=== PATIENT | male | born 1990 | race Caucasian/White ===

== ENCOUNTER 2024-10-28 19:25 | Emergency (ER) | payer SELFPAY ==
[2024-10-28 19:26] VITALS: BP 122/95; PULSE 89; RESP 18; TEMP 36.6; O2SAT 97; BMI 20.8
--- NOTE | 2024-10-28 19:40 | EX.ED.DYSGE1 ---
HPI History of Present Illness Chief Complaint: Flank Pain Informant: patient Narrative Narrative: 34-year-old male presenting to the emergency room with right flank pain vomiting diarrhea and inability to take a breath. Patient states that he came home from work vomiting and diarrhea. Lay down to rest got up had pain in the right flank extending onto the whole right side and notes an inability to take a deep breath because of pain. No fever. No urinary symptoms. Patient felt fine when they went to work. Denies any significant medical problems or prior surgeries. Currently takes no medications. 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 (bee venom Allergy Anaphylaxis Verified 10/28/24 19:26 (honey bee)) Family History no significant family his Surgical History no surgical history Social History Smoking Status: Current every day smoker tobacco type: cigarettes ROS ROS ED Constitutional Constitutional ED: Denies chills, fever(s) or weight loss Eyes Eyes: Denies change in vision or diplopia ENT ENT ED: Denies ear pain, rhinorrhea or sore throat Cardiovascular Cardiovascular: Denies chest pain, orthopnea, palpitations or racing heartbeat Respiratory/Chest Respiratory/Chest: Reports dyspnea; Denies cough or orthopnea Gastrointestinal Gastrointestinal: Reports abdominal pain, diarrhea, nausea and vomiting Genitourinary Genitourinary ED: Denies dysuria, hematuria or urinary frequency Musculoskeletal Musculoskeletal: Reports back pain; Denies arthralgias or myalgias Integumentary Denies abscess or rash Neurologic Neurologic: Denies headache(s) or weakness Psychiatric Psychiatric: Denies anxiety, depression, suicidal ideation or suicidal thoughts Endocrine Endocrinology: Denies polydipsia, polyphagia or polyuria Allergic/Immunologic Allergic/Immunologic ED: Denies mouth swelling, tongue swelling or urticaria EXAM Physical Exam Const Vital Signs: 10/28/24 19:26 10/28/24 21:25 Temperature 98 F Temperature Source Oral Pulse Rate 89 82 Respiratory Rate 18 16 Blood Pressure 122/95 H 99/61 Blood Pressure Mean 104 73 Pulse Ox 97 98 Oxygen Delivery Method Room Air Room Air Positive well nourished and well developed General Appearance ED: well developed and NAD HEENT Reports normocephalic, head/scalp atraumatic and moist mucous membranes Eyes PERRL and EOMs intact bilaterally Neck no lymphadenopathy, supple and no JVD Resp normal respiratory effort and clear to auscultation bilaterally Cardio regular rate, regular rhythm and no murmurs GI GI Narrative: Extraordinarily difficult to get an exam. Simply placing my hand on the patient's skin causes him to arrive in the bed and pain. Auscultation: normoactive bowel sounds Back/Spine no CVA tenderness Back/Spine Narrative: Reported pain in the right flank Extremity normal to inspection General Extremety ED: Negative for edema General Extremity: Negative for edema Neuro oriented x3 and CN's II-XII intact bilaterally Sensorium / Orientation: alert Motor Exam: strength 5/5 throughout Psych Mood & Affect: anxious; Negative for depressed or tearful Skin no rashes or lesions noted and no wounds MDM MDM MDM Narrative Medical decision making narrative: Differential diagnosis includes but not limited to pneumothorax biliary colic ureterolithiasis muscular spasm dehydration electrolyte abnormalities colitis IV established patient received IV fluids Toradol Zofran and Ativan. Patient's white count is elevated 15.7 with hemoglobin 17.9. BMP shows a BUN of 15 creatinine 1.22. Glucose of 148. Lipase 149 which is most likely due to his vomiting. Urinalysis demonstrates 1+ bacteria 0-5 white cells or 5 red cells positive nitrates but he does have some bilirubin and I wonder if this is a false positive as she does not have any urinary symptoms. His urine is rather concentrated showing it to be more of a very dark yellow. CT of abdomen pelvis was obtained which does not demonstrate any significant acute findings. Please see the radiologist read. They do note that the negrete of the appendix seemed thickened but there is no periappendiceal edema or inflammatory changes. The patient was reassessed and is doing much better. I wonder if the pain he was experiencing in his back that seem to wrap around to the abdomen was more of a muscular spasm brought on by some dehydration. I reexamined his abdomen he is pain-free particularly over the appendix. He moves easily. He is tolerating p.o. fluids. Can receive another liter of IV fluids and be discharged home on Zofran. We did talk specifically about his appendix and should he develop pain in the abdomen particular the right lower quadrant I would like him to return and he notes understanding of this. History & Record Review Discussion w/independent historian: Patient Lab Data Attestation: I reviewed the patient's lab results. Labs: Laboratory Results - last 24 hr 10/28/24 10/28/24 19:40 20:25 WBC 15.7 H RBC 5.43 Hgb 17.9 H Hct 50.6 MCV 93.2 MCH 33.0 H MCHC 35.4 RDW Std Deviation 40.7 RDW Coeff of Binu 11.8 Plt Count 205 MPV 10.5 Immature Gran % (Auto) 0.400 Neut % (Auto) 85.8 H Lymph % (Auto) 5.7 L [place] % (Auto) 7.0 Eos % (Auto) 0.4 Baso % (Auto) 0.7 Absolute Neuts (auto) 13.4 H Absolute Lymphs (auto) 0.89 Nucleated RBC % 0 Sodium 139 Potassium 4.1 Chloride 107 Carbon Dioxide 25.0 Anion Gap 7 BUN 15 Creatinine 1.22 Estim Creat Clear Calc 74.14 Est GFR (MDRD) Af Amer 88 Est GFR (MDRD) Non-Af 73 BUN/Creatinine Ratio 12.3 Glucose 148 H Calcium 9.7 Total Bilirubin 0.90 Direct Bilirubin 0.21 AST 19 ALT 21 Alkaline Phosphatase 110 Total Protein 8.4 H Albumin 4.8 Globulin 3.6 Lipase 149 H Urine Color Yellow Urine Clarity Sl. Cloudy Urine pH 5.0 Ur Specific [place] 1.025 Urine Protein 30 H Urine Glucose (UA) Normal Urine Ketones 50 H Urine Occult Blood Negative Urine Nitrite Positive H Urine Bilirubin 3 H Urine Urobilinogen 4 H Ur Leukocyte Esterase 25 H Urine RBC 0-5 SEEN Urine WBC 0-5 SEEN Ur Squamous Epith Cells 0 SEEN Urine Bacteria 1+ Urine Mucus 3+ Radiography Diagnostic Testing: Clinical Impression(s) from Imaging Studies Chest X-Ray 10/28/24 20:17 IMPRESSION: Normal x-ray examination of the chest. Electronically Signed: Nirav Robni MD at 20:45 EST , Abdomen/Pelvis CT 10/28/24 20:48 IMPRESSION: Findings which may be consistent with very early changes of acute appendicitis however clinical correlation is recommended. No other acute abnormality identified Electronically Signed: Nirav Robin MD at 21:38 EST Reading Location ID and State: [address] [place] [address] Tel , Service support , Discharge Plan Triage Chief Complaint: Flank Pain ED Provider: Tiburcio Mendez Dx/Rx/DC Orders Clinical Impression: Acute gastroenteritis, Acute dehydration, Muscle spasm Instructions: Viral Gastroenteritis, Muscle Spasm, ED Dehydration (Adult) Prescriptions: New ondansetron 4 mg tablet,disintegrating 4 mg PO Q6H PRN PRN (Reason: Nausea) Qty: 15 0RF Primary Care Provider: Care Physician,No Primary [facility]errals[facility] [Non-Staff] - As Needed Print Language: Yi
[2024-10-28] MEDS: Ondansetron 4 MG/2 ML Vial IV (19:44)
[2024-10-28] MEDS: Ketorolac 30 MG/ML Syringe IV (19:44)
[2024-10-28] MEDS: 0.9% Normal Saline (1000mL) 1,000 ML 1000 ML IV (19:44)
[2024-10-28 19:54] LABS: Absolute Lymphocyte Count 0.89 X10^3/uL (0.83-4.51); Absolute Neutrophil Count 13.4 X10^3/uL (2.0-7.7); Basophil# 0.11 X10^3/uL; Basophil% 0.7 % (0-1); Eosinophil# 0.07 X10^3/uL; Eosinophils% 0.4 % (0-5); Hematocrit 50.6 % (40-54); Hemoglobin 17.9 g/dL (13.0-16.5); Lymphocyte # 0.89 X10^3/ul (0.83-4.51); Lymphocyte % 5.7 % (19-41); Mean Corp Hgb Conc 35.4 g/dL (32-36); Mean Corpuscular Volume 93.2 fL (80-94); Mean Platelet Vol. 10.5 fl (6.2-12.0); Monocyte# 1.09 X10^3/uL; NRBC Flagged by Analyzer 0 % (0-5); Neutrophil # 13.43 X10^3/uL (2.7-7.7); Neutrophil % 85.8 % (47-70); Platelet Count 205 K/mm3 (150-450); RBC Distribution Width CV 11.8 % (11.6-14.6); RBC Distribution Width SD 40.7 fl (35.1-43.9); Red Blood Count 5.43 M/mm3 (4.6-6.2); White Blood Count 15.7 K/mm3 (4.4-11.0)
[2024-10-28 20:17] LABS: AST(SGOT) 19 U/L (15-37); Alanine Aminotransfer ALT/SGPT 21 U/L (16-61); Albumin, Serum 4.8 g/dL (3.2-5.0); Alkaline Phosphatase 110 U/L (45-117); Anion Gap 7 (5-15); BUN 15 mg/dL (7-18); BUN/Creat Ratio 12.3 RATIO (10-20); Bilirubin, Direct 0.21 mg/dL (0.00-0.30); Calcium,Total 9.7 mg/dL (8.5-10.1); Chloride 107 mmol/L (98-107); Creatinine, Serum 1.22 mg/dL (0.70-1.30); EST Glomerular Filtration Rate 73 mL/min (>60); Est Glom Filt Rate - Afr Amer 88 mL/min (>60); Estimated Creatinine Clearance 74.14 ml/min; Globulin 3.6 g/dL (2.2-4.2); Glucose 148 mg/dL (74-106); Lipase 149 U/L (13-75); Potassium 4.1 mmol/L (3.5-5.1); Protein, Total 8.4 g/dL (6.4-8.2); Sodium Level 139 mmol/L (136-145)
--- NOTE | 2024-10-28 20:17 | RAD_ITS ---
STUDY: X-RAY CHEST REASON FOR EXAM: Male, 34 years old. dyspnea TECHNIQUE: AP portable COMPARISON: October 05, 2014 FINDINGS: The lungs are clear and expanded. There is no demonstrated pleural abnormality. Normal size heart. Normal mediastinum and zulay. Normal visualized pulmonary arteries. Normal visualized aortic arch and descending thoracic aorta. Normal visualized thoracic spine. Normal visualized ribs, clavicles, and shoulders. There is no demonstrated abnormality of the visualized soft tissue structures of the upper abdomen. RAD/Chest 1 View (Portable) IMPRESSION: Normal x-ray examination of the chest. Electronically Signed: Nirav Robin MD at 20:45 EST ,
[2024-10-28 20:40] LABS: Squamous Epithelial Cells - UA 0 SEEN /hpf (0-5)
--- NOTE | 2024-10-28 20:48 | CT_ITS ---
STUDY: CT ABDOMEN AND PELVIS WITH CONTRAST REASON FOR EXAM: Male, 34 years old. flank pain RADIATION DOSAGE (If Supplied By Facility): CTDIvol = ( 8.86 ) mGy, DLP = ( 413.27 ) mGycm TECHNIQUE: Transaxial images were obtained from the dome of the diaphragm to the symphysis pubis without oral contrast. IV 75mL Isovue-370 was administered. Sagittal and coronal images were reconstructed. Individualized dose optimization techniques were used for this CT. COMPARISON: None. FINDINGS: The visualized lung bases are unremarkable. The visualized portions of the heart are within normal limits. Normal liver. Normal gallbladder and extrahepatic biliary system. Normal spleen. Normal pancreas. Normal bilateral adrenal glands. Normal right kidney. Normal left kidney. Normal visualized stomach. Normal small intestine. Normal colon. Retrocecal appendix is noted demonstrating mild concentric thickening of the negrete but without appreciable stranding in the fat. Possibility of early changes of acute appendicitis not excluded. Clinical correlation recommended Normal abdominal aorta. Normal inferior vena cava. Normal retroperitoneum. Normal urinary bladder. Normal abdominal wall. Normal osseous structures. CT/Abdomen/Pelvis W IV Cont ONLY IMPRESSION: Findings which may be consistent with very early changes of acute appendicitis however clinical correlation is recommended. No other acute abnormality identified Electronically Signed: Nirav Robin MD at 21:38 EST ,
[2024-10-28 21:00] LABS: Color, Urine Yellow (Yellow); Glucose, Dipstick Normal (Normal); Ketone-Dipstick 50 mg/dl (Negative); Leukocyte Esterase-Dipstick 25 /ul (Negative); Nitrite-Dipstick Positive (Negative); Occult Blood-Urine Negative /ul (Negative); Protein-Dipstick 30 mg/dl (Negative); Specific Gravity, Urine 1.025 (1.002-1.030); Urine Clarity Sl. Cloudy (Clear); Urine Urobilinogen 4 mg/dl (Normal)
[2024-10-28 21:07] LABS: Urine Bilirubin Dipstick 3 mg/dL (Negative)
[2024-10-28 21:25] VITALS: BP 99/61; PULSE 82; RESP 16; O2SAT 98
[2024-10-28 21:36] LABS: Bacteria 1+ /hpf (None Seen); Mucous, Urine 3+ /hpf (<or=2+); Red Blood Cells-Urine 0-5 SEEN /hpf (0-5); White Blood Cells 0-5 SEEN /hpf (0-5)
[2024-10-28] MEDS: 0.9% Normal Saline (1000mL) 1,000 ML 999 ML IV (22:17)
[2024-10-28 23:00] VITALS: BP 94/72; PULSE 88; RESP 16; O2SAT 100
[2024-10-28 23:05] VITALS: BP 94/72; PULSE 88; RESP 16; TEMP 37.2; O2SAT 100
== END 2024-10-28 23:20 | disposition home or self-care (01) ==
LOC: ED 19:57
PROVIDERS: Emergency Provider Emergency Medicine; Visit Provider Emergency Medicine
DX: K52.9 Noninfective gastroenteritis and colitis, unspecified (principal); M62.838 Other muscle spasm; E86.0 Dehydration; F17.210 Nicotine dependence, cigarettes, uncomplicated; R06.00 Dyspnea, unspecified
CPT/HCPCS: 71045; 74177; 80048; 80076; 81001; 83690; 85025; 96361; 96374; 96375; 99283; Q9967; A4216; J2405

== ENCOUNTER 2025-08-10 11:59 | Emergency (ER) | payer SELFPAY ==
[2025-08-10 12:00] VITALS: BP 112/72; PULSE 89; RESP 16; TEMP 36.8; O2SAT 98; BMI 21.1
[2025-08-10 13:00] VITALS: BP 118/72; PULSE 73; O2SAT 100
--- NOTE | 2025-08-10 13:10 | EX.ED.DYSGE1 ---
HPI History of Present Illness Chief Complaint: Other, Pain/Inj Informant: patient Onset/Context/Timing Onset: Weeks (3) Context: Gradual Onset Timing: Continuous Quality: # Location: Left side of abdomen Worsened by: Breathing, coughing, moving Relieved by: Nothing Narrative Narrative: Patient presents with left-sided abdominal pain that has been getting worse over the past 3 weeks. Patient states it is gradually getting worse. Patient describes it as sharp. Patient states it is worse with breathing, coughing, and movement. Patient states nothing makes it better. Patient states his pain is radiating into his neck. Patient admits to some occasional dysuria but denies any frequency or hematuria. Patient denies any vomiting or diarrhea. Patient denies any melena or hematochezia. [facility] Medical History Anxiety Home Medications ?Medication ?Instructions ?Recorded ?Last Taken ?Type ondansetron 4 mg disintegrating 4 mg PO Q6H PRN PRN Nausea #15 tabs 10/28/24 Unknown Rx tablet Allergy/AdvReac Type Severity Reaction Status Date / Time mushroom Allergy Anaphylaxis Verified 08/10/25 12:00 venom-honey bee (bee venom Allergy Anaphylaxis Verified 08/10/25 12:00 (honey bee)) Family History no significant family his Social History Smoking Status: Current every day smoker tobacco type: cigarettes ROS ROS ED Constitutional Constitutional ED: Denies chills or fever(s) Eyes Eyes: Denies blurry vision or change in vision ENT ENT ED: Denies rhinorrhea or sore throat Cardiovascular Cardiovascular: Reports chest pain; Denies palpitations Respiratory/Chest Respiratory/Chest: Denies cough or dyspnea Gastrointestinal Gastrointestinal: Reports abdominal pain and nausea; Denies diarrhea, melena or vomiting Genitourinary Genitourinary ED: Reports dysuria; Denies hematuria Musculoskeletal Musculoskeletal: Reports neck pain; Denies back pain Integumentary Denies abscess or rash Neurologic Neurologic: Denies headache(s) or weakness Allergic/Immunologic Allergic/Immunologic ED: Denies mouth swelling or urticaria EXAM Physical Exam Const Vital Signs: 08/10/25 12:00 08/10/25 13:00 08/10/25 14:00 Temperature 98.2 F Temperature Source Oral Pulse Rate 89 73 76 Respiratory Rate 16 18 Blood Pressure 112/72 118/72 Blood Pressure Mean 85 87 Pulse Ox 98 100 100 Oxygen Delivery Method Room Air 08/10/25 16:00 Temperature Temperature Source Pulse Rate Respiratory Rate Blood Pressure 118/53 L Blood Pressure Mean 74 Pulse Ox Oxygen Delivery Method Positive well nourished and well developed General Appearance ED: well developed and NAD HEENT Reports moist mucous membranes Neck supple and no JVD Cardio regular rate and regular rhythm GI non-distended Palpation: soft and tender LLQ and LUQ; Negative for rebound tenderness present Neuro oriented x3, CN's II-XII intact bilaterally and no sensory deficits noted Sensorium / Orientation: alert Motor Exam: strength 5/5 throughout Psych mental status grossly normal MDM MDM MDM Narrative Medical decision making narrative: Differential diagnosis includes diverticulitis, colitis, bowel obstruction, perforation, ureteral calculus, dehydration, pancreatitis, and electrolyte abnormality. CBC will be obtained to assess for leukocytosis and anemia. Comprehensive metabolic profile will be obtained to assess for hepatic function, renal function, and electrolyte abnormality. Lipase will be obtained to assess for pancreatitis. Urinalysis will be obtained to assess for urinary tract infection and hematuria. CT scan of the abdomen pelvis will be obtained to assess for bowel obstruction, perforation, diverticulitis, and ureteral calculus. Lab Data Attestation: I reviewed the patient's lab results. Lab results narrative: CBC was reviewed and was within normal limits. Comprehensive metabolic profile was reviewed. Alkaline phosphatase was mildly elevated at 224. This is is nonspecific. Lipase was reviewed and was normal at 28. Urinalysis was reviewed. There is no evidence of urinary tract infection or hematuria. Labs: Laboratory Results - last 24 hr 08/10/25 08/10/25 14:00 14:55 WBC 8.1 RBC 4.29 L Hgb 13.3 Hct 39.5 L MCV 92.1 MCH 31.0 MCHC 33.7 RDW Std Deviation 41.8 RDW Coeff of Binu 12.4 Plt Count 252 MPV 10.0 Immature Gran % (Auto) 0.200 Neut % (Auto) 68.8 Lymph % (Auto) 17.6 L [place] % (Auto) 10.8 H Eos % (Auto) 2.1 Baso % (Auto) 0.5 Absolute Neuts (auto) 5.6 Absolute Lymphs (auto) 1.42 Nucleated RBC % 0 Sodium 138 Potassium 4.3 Chloride 103 Carbon Dioxide 26.7 Anion Gap 8 BUN 9 Creatinine 0.75 Estim Creat Clear Calc 121.34 Est GFR (MDRD) Non-Af 122 BUN/Creatinine Ratio 12.0 Glucose 135 H Calcium 9.0 Total Bilirubin 0.21 AST 23 ALT 31 Alkaline Phosphatase 224 H Total Protein 6.9 Albumin 3.4 L Globulin 3.5 Albumin/Globulin Ratio 1.0 Lipase 28 Urine Color Yellow Urine Clarity Clear Urine pH 7.0 Ur Specific [place] 1.010 Urine Protein Negative Urine Glucose (UA) Normal Urine Ketones Negative Urine Occult Blood Negative Urine Nitrite Negative Urine Bilirubin Negative Urine Urobilinogen Normal Ur Leukocyte Esterase Negative Urine RBC 0 SEEN Urine WBC 0 SEEN Ur Squamous Epith Cells 0 SEEN Urine Bacteria 0 SEEN Urine Mucus 0 SEEN Radiography Diagnostic Testing: Clinical Impression(s) from Imaging Studies Abdomen/Pelvis CT 08/10/25 14:45 IMPRESSION: 1. No acute findings in the abdomen or pelvis. 2. Mild noncalcified plaque of the abdominal aorta, greater than expected in this young patient. Reading [facility] of the abdomen and pelvis was obtained. There is no acute abnormality noted. There is a mild plaque of the abdominal aorta. There is no free air or free fluid. This was interpreted by the radiologist and was also independently reviewed by myself. Treatment and Re-Evaluation :: Patient was given IV fluids, morphine, and Zofran. Patient was feeling better on reevaluation. Patient was advised of his findings. Patient was instructed to start with a bland diet and advance as tolerated. Patient was instructed to follow-up with his primary care physician in 5 to 7 days for further evaluation. Patient understood and was agreeable with the plan. All questions were answered. Discharge Plan Triage Chief Complaint: Other, Pain/Inj ED Provider: Shar Reyes Dx/Rx/DC Orders Clinical Impression: Abdominal pain, Tobacco use Instructions: ED Abdominal Pain Unkn Cause Male... Prescriptions: No Action ondansetron 4 mg tablet,disintegrating 4 mg PO Q6H PRN PRN (Reason: Nausea) Qty: 15 0RF Primary Care Provider: Care Physician,No Primary Referrals: Care Physician,No Primary [Primary Care Provider, Medical] Elizabet Rodriguez, DEVELOPMENT [employer] [[facility]] - 5-7 Days Print Language: Upper Sorbian Disposition Disposition: Home, Self Care
[2025-08-10] MEDS: 0.9% Normal Saline (1000mL) 1,000 ML 999 ML IV (13:56)
[2025-08-10 14:00] VITALS: PULSE 76; RESP 18; O2SAT 100
[2025-08-10 14:06] LABS: Hematocrit 39.5 % (40-54); Hemoglobin 13.3 g/dL (13.0-16.5); Immature Granulocytes Count 0.020 X10^3/uL (0.0-0.0); Mean Corp Hgb Conc 33.7 g/dL (32-36); Mean Corpuscular Volume 92.1 fL (80-94); Mean Platelet Vol. 10.0 fl (6.2-12.0); NRBC Flagged by Analyzer 0 % (0-5); Platelet Count 252 K/mm3 (150-450); RBC Distribution Width CV 12.4 % (11.6-14.6); RBC Distribution Width SD 41.8 fl (35.1-43.9); Red Blood Count 4.29 M/mm3 (4.6-6.2); White Blood Count 8.1 K/mm3 (4.4-11.0)
[2025-08-10 14:22] LABS: AST(SGOT) 23 U/L (<=37); Alanine Aminotransfer ALT/SGPT 31 U/L (<=46); Albumin, Serum 3.4 g/dL (3.5-5.0); Alkaline Phosphatase 224 U/L (40-129); Anion Gap 8 (5-15); BUN 9 mg/dL (4-19); BUN/Creat Ratio 12.0 RATIO (10-20); Calcium,Total 9.0 mg/dL (7.6-11.0); Carbon Dioxide 26.7 mmol/L (21.0-32.0); Chloride 103 mmol/L (98-108); Estimated Creatinine Clearance 121.34 ml/min (50-250); Globulin 3.5 g/dL (2.2-4.2); Glucose 135 mg/dL (70-99); Lipase 28 U/L (13-75); Potassium 4.3 mmol/L (3.3-5.1)
--- NOTE | 2025-08-10 14:45 | CT_ITS ---
PROCEDURE: CT/Abdomen/Pelvis W IV Cont ONLY
[2025-08-10 15:19] LABS: Mucous, Urine 0 SEEN /hpf (<or=2+); Red Blood Cells-Urine 0 SEEN /hpf (0-5); Squamous Epithelial Cells - UA 0 SEEN /hpf (0-5)
[2025-08-10 15:27] LABS: Color, Urine Yellow (Yellow); Glucose, Dipstick Normal (Normal); Ketone-Dipstick Negative (Negative); Leukocyte Esterase-Dipstick Negative /ul (Negative); Nitrite-Dipstick Negative (Negative); Occult Blood-Urine Negative /ul (Negative); Protein-Dipstick Negative (Negative); Specific Gravity, Urine 1.010 (1.002-1.030); Urine Bilirubin Dipstick Negative (Negative)
[2025-08-10 16:00] VITALS: BP 118/53
[2025-08-10 17:18] VITALS: BP 112/54; PULSE 69; RESP 14; TEMP 36.8; O2SAT 100
== END 2025-08-10 17:24 | disposition home or self-care (01) ==
PROVIDERS: Emergency Provider Emergency Medicine; Visit Provider Emergency Medicine
DX: R10.9 Unspecified abdominal pain (principal); F17.210 Nicotine dependence, cigarettes, uncomplicated; R30.0 Dysuria; M54.2 Cervicalgia
CPT/HCPCS: 74177; 80053; 81001; 83690; 85025; 96361; 96374; 96375; 99283; Q9967; A4216; J2405